=== PATIENT | male | born 1975 | race Caucasian/White ===

== ENCOUNTER 2018-12-29 15:50 | Emergency (ER) | payer BC, SELFPAY ==
[2018-12-29 15:51] VITALS: BP 159/83; PULSE 99; RESP 18; TEMP 36.9; O2SAT 99; BMI 29.6
--- NOTE | 2018-12-29 16:09 | ED.DCSUM_ITS ---
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 No associated symptoms. He needs tetanus immunization. Physical Examination: 5 cm laceration of the left medial ankle. Full-thickness, linear. Neurovascular intact distally. No laxity or deformities. Test Results: None performed Emergency Department Course and Treatment: Tetanus updated. Wound was anesthetized with lidocaine infiltrate. Wound was explored and irrigated under good lighting. No foreign bodies appreciated. No tendon or other deep structure involvement visualized. Wound was closed with 7 sutures. He was given wound care instructions. Follow-up with primary care for removal of sutures. Return right away for any signs of infection or any other complications or concerns. Treatment Plan: As above Disposition: Discharge Impression: 1. Left ankle laceration 5 cm This note was generated with [employer] dictation software. It may contain incorrect words, spelling, and punctuation that were not noted in review of the chart prior to signing ED Disposition - Plan for ED Patient: Instructions: LACERATION, Foot Referrals: [facility],Out of [Primary Care Provider] - 10-14 Days suture removal
--- NOTE | 2018-12-29 16:11 | DCINST.ED_ITS ---
ED Disposition - Plan for ED Patient: Instructions: LACERATION, Foot Referrals: [facility],Out of [Primary Care Provider] - 10-14 Days suture removal
[2018-12-29] MEDS: Diphth,Pertuss(Acell),Tet Vac 0.5 ML Vial IM (16:53)
== END 2018-12-29 17:01 | disposition home or self-care (01) ==
LOC: ED 16:51
PROVIDERS: Emergency Provider Emergency Medicine
DX: S91.012A Laceration without foreign body, left ankle, initial encounter (principal); W26.8XXA Contact with other sharp object(s), not elsewhere classified, initial encounter; Y93.89 Activity, other specified; Y92.9 Unspecified place or not applicable; Z72.0 Tobacco use
CPT/HCPCS: 12001; 90471; 90715; 99283